=== PATIENT | female | born 1990 | race Caucasian/White ===

== ENCOUNTER 2020-03-01 14:33 | Outpatient (REF) | payer OTHER, SELFPAY ==
[2020-03-02 11:08] LABS: BV Int Neg Control Negative (Negative); BV Int Pos Control Positive (Positive)
[2020-03-26 13:22] LABS: CT PCR NOT DETECTED (Not Detect.); NG PCR NOT DETECTED (Not Detect.)
== END 2020-03-01 14:34 | disposition home or self-care (01) ==
LOC: HO.LAB 14:33
PROVIDERS: PCP Internal Medicine; Visit Provider Advanced Practice Midwife
DX: N89.8 Other specified noninflammatory disorders of vagina (principal); N94.9 Unspecified condition associated with female genital organs and menstrual cycle; Z11.8 Encounter for screening for other infectious and parasitic diseases; Z11.3 Encounter for screening for infections with a predominantly sexual mode of transmission
CPT/HCPCS: 87480; 87491; 87510; 87591; 87660; 99212

== ENCOUNTER → 2020-04-06 08:49 | Outpatient (BNVA) | payer OTHER, SELFPAY | PROVIDERS: PCP Internal Medicine; Visit Provider Advanced Practice Midwife | DX: Z30.42 Encounter for surveillance of injectable contraceptive (principal) | CPT/HCPCS: 96372; 99211; J1050 ==

== ENCOUNTER 2020-04-07 13:07 | Outpatient (REF) | payer OTHER, SELFPAY ==
[2020-04-08 09:40] LABS: BV Int Neg Control Negative (Negative); BV Int Pos Control Positive (Positive)
== END 2020-04-07 13:08 | disposition home or self-care (01) ==
LOC: HO.LAB 13:07
PROVIDERS: PCP Internal Medicine; Visit Provider Advanced Practice Midwife
DX: B96.89 Other specified bacterial agents as the cause of diseases classified elsewhere (principal); N76.0 Acute vaginitis; Z86.19 Personal history of other infectious and parasitic diseases
CPT/HCPCS: 87210; 87480; 87510; 87660; 99212

== ENCOUNTER → 2020-06-29 08:43 | Outpatient (BNVA) | payer OTHER, SELFPAY | PROVIDERS: PCP Internal Medicine; Visit Provider Advanced Practice Midwife | DX: Z30.42 Encounter for surveillance of injectable contraceptive (principal) | CPT/HCPCS: 96372; 99211; J1050 ==

== ENCOUNTER 2020-08-09 13:06 | Outpatient (REF) | payer OTHER, SELFPAY ==
[2020-08-10 09:48] LABS: CT PCR NOT DETECTED (Not Detect.); NG PCR NOT DETECTED (Not Detect.)
== END 2020-08-09 13:07 | disposition home or self-care (01) ==
LOC: HO.LAB 13:06
PROVIDERS: PCP Internal Medicine; Visit Provider Advanced Practice Midwife
DX: Z01.419 Encounter for gynecological examination (general) (routine) without abnormal findings (principal); Z11.3 Encounter for screening for infections with a predominantly sexual mode of transmission; Z20.2 Contact with and (suspected) exposure to infections with a predominantly sexual mode of transmission
CPT/HCPCS: 87491; 87591

== ENCOUNTER 2020-09-14 08:48 | Outpatient (REF) | payer OTHER, SELFPAY ==
[2020-09-14 10:38] LABS: Syphilis Screen Nonreactive (Nonreactive)
[2020-09-14 10:43] LABS: HBc Num1 0.08 S/CO (0.00-0.79); Hepatitis B Core Antibody Nonreactive (Nonreactive)
[2020-09-14 11:19] LABS: ~HepC Num1 0.09 S/CO (0.00-0.79); ~Hepatitis C Antibody Nonreactive (Nonreactive)
[2020-09-15 11:49] LABS: HIV AB/AG Nonreactive (Nonreactive); HIV Num 1 0.06 S/CO (0.00-0.99)
== END 2020-09-14 08:49 | disposition home or self-care (01) ==
LOC: HO.LAB 08:48
PROVIDERS: PCP Internal Medicine; Visit Provider Advanced Practice Midwife
DX: Z30.42 Encounter for surveillance of injectable contraceptive (principal); Z20.2 Contact with and (suspected) exposure to infections with a predominantly sexual mode of transmission
CPT/HCPCS: 36415; 86704; 86780; 86803; 87389; 96372; 99211

== ENCOUNTER 2021-01-21 13:38 | Emergency (ER) | payer OTHER, SELFPAY ==
[2021-01-21 13:42] VITALS: BP 151/64; PULSE 90; RESP 14; TEMP 36.8; O2SAT 99; BMI 33.7
--- NOTE | 2021-01-21 13:53 | ED.ALLEREA ---
HPI - Allergic Reaction General Chief complaint: Allergic Reaction Stated complaint: allergic reaction Time Seen by Provider: 01/21/21 13:44 Source: patient Mode of arrival: ambulatory Limitations: no limitations History of Present Illness HPI narrative: Patient comes emergency room complaining of an allergic reaction that started 20 minutes prior to arrival, patient states she has hives throughout her body, itchiness, no difficulty breathing, no oral mucosa swelling. Patient states that approximately 3 hours ago she ate red snapper. Patient denies any numbness or tingling, no nausea vomiting or diarrhea. Related Data Home Medications Medication Instructions Recorded Confirmed medroxyprogesterone 150 mg/mL mg IM 03/01/20 intramuscular suspension sulfamethoxazole 800 1 tab PO BID 03/01/20 mg-trimethoprim 160 mg tablet fluoxetine 20 mg capsule 20 mg PO DAILY 08/09/20 Previous Rx's Medication Instructions Recorded metronidazole 500 mg tablet 500 mg PO BID 7 Days #14 tab 03/02/20 (Flagyl) medroxyprogesterone 150 mg/mL 150 mg IM Q12W #1 ml 08/09/20 intramuscular suspension Allergies Allergy/AdvReac Type Severity Reaction Status Date / Time metronidazole [From Flagyl] Allergy Intermediate Hives Verified 01/21/21 13:42 amoxicillin [AMOXICILLIN] Allergy Unknown UNKNOWN Verified 01/21/21 13:42 [facility] Past Medical History [facility] Narrative: C Family History Family History Paternal Grandmother Breast cancer Social History Social History Alcohol intake: current Alcohol intake frequency: holidays/special occasions only Advance Directives: No Sexual orientation: Straight/Heterosexual Gender identity: Female Physical Exam Vital Signs: Vital Signs: Last Vital Signs Temp 98.3 F 01/21/21 13:42 Pulse 85 01/21/21 14:47 Resp 19 01/21/21 14:47 BP 107/58 L 01/21/21 14:47 Pulse Ox 99 01/21/21 14:47 Body Mass Index 33.7 Const: Other: Appearance: Alert. Oriented X3. No acute distress. Eyes: Pupils equal, round and reactive to light. ENT: Pharynx normal. No angioedema Neck: Normal inspection. Neck supple. No lymph nodes noted. No crepitus CVS: Normal heart rate and rhythm. Pulses normal. Normal S1 and S2 Respiratory: No respiratory distress. Breath sounds normal. No Wheezing. No rales Abdomen: Soft and nontender. No rigidity. No distention. good BS x4 Skin: 5 in face, neck, chest abdomen, upper and lower extremities Extremities: No lower extremity edema. No Lacerations. No Rash Neuro: Oriented X 3. No motor deficit. No sensory deficit. Moving all extermities. No slurred speech. Course Course Course Narrative: Patient feeling much better, patient received 1 dose of Benadryl IV, Pepcid, Solu-Medrol. Patient's physical exam normal. Patient likely had scombroid rather than an allergic reaction. I discussed with the patient not to eat any seafood until she gets tested for allergies. Discharge Plan Discharge Clinical Impression: Allergic reaction to food Qualifiers: Encounter type: initial encounter Qualified Code(s): T78.1XXA - Other adverse food reactions, not elsewhere classified, initial encounter Patient Disposition: Home, Self-Care Instructions: Food Allergy (ED) Additional Instructions: Please follow-up with your primary care physician tomorrow. If you have any worsening or new symptoms, please return to the emergency room or call 911 Prescriptions: No Action metronidazole [Flagyl] 500 mg tablet 500 mg PO BID 7 Days Qty: 14 RF: 0 medroxyprogesterone 150 mg/mL suspension IM RF: 0 sulfamethoxazole-trimethoprim 800-160 mg tablet 1 tab PO BID RF: 0 medroxyprogesterone [Depo-Provera] 150 mg/mL syringe 150 mg IM ONCE Qty: 1 RF: 0 fluoxetine 20 mg capsule 20 mg PO DAILY RF: 0 medroxyprogesterone 150 mg/mL suspension 150 mg IM Q12W Qty: 1 RF: 3
[2021-01-21] MEDS: diphenhydrAMINE HCL 50 MG/ML VIAL IVPUSH (13:55)
[2021-01-21] MEDS: Famotidine/PF 20 MG/2 ML VIAL IVPUSH (13:58)
[2021-01-21] MEDS: methylPREDNISolone Sod Succ 125 MG/2 ML VIAL IVPUSH (14:00)
--- NOTE | 2021-01-21 14:01 | PC.NURSE ---
Pt medicated for allergic reaction. VSS at this time. Airway is open with breathing pattern even and unlabored.
[2021-01-21 14:02] VITALS: BP 122/62; PULSE 86; RESP 16; O2SAT 99
[2021-01-21 14:47] VITALS: BP 107/58; PULSE 85; RESP 19; O2SAT 99
--- NOTE | 2021-01-21 14:47 | PC.NURSE ---
pt resting quietly. hives gone
== END 2021-01-21 15:23 | disposition home or self-care (01) ==
PROVIDERS: Emergency Provider Emergency Medicine; PCP Internal Medicine
DX: L50.9 Urticaria, unspecified (principal); Z79.899 Other long term (current) drug therapy
CPT/HCPCS: 96374; 96375; 99284; J1200; J2930

== ENCOUNTER 2021-08-29 08:31 | Emergency (ER) | payer OTHER, SELFPAY ==
--- NOTE | ~2021-08-29 | US_ITS ---
EXAMINATION: US OBSTETRICAL ULTRASOUND CLINICAL INFORMATION: 6 weeks with bleeding COMPARISON: None. LMP: 07/29/2021. TECHNIQUE: Transabdominal and endovaginal scanning was performed. FINDINGS: A tiny gestational sac may be present within the uterus but no pole is seen. No yolk sac or heart rate is detected. MATERNAL ADNEXA: The right maternal ovary measures 3.0 x 1.6 x 2.2 cm. The left maternal ovary measures 2.7 x 1.6 x 2.4 cm. There is no significant maternal adnexal mass. A tiny amount of free intraperitoneal fluid is present. US/US OB pelvic and transvaginal IMPRESSION: A tiny gestational sac may be present but no pole is identified. Please correlate with hCG levels and repeat ultrasound if necessary.
[2021-08-29 09:18] VITALS: BP 98/66; PULSE 90; RESP 16; TEMP 36.4; O2SAT 95; BMI 33.8
[2021-08-29 09:25] LABS: MANUAL DIFF FLAG NO
[2021-08-29 09:31] LABS: Basophils Percent Auto 0.4 % (0-2); Eosinophils Absolute Auto 0.1 X10*3/uL (0.0-0.4); Eosinophils Percent Auto 1.3 % (0-4); Hematocrit 40.3 % (37.0-47.0); Hemoglobin 13.4 g/dl (12.0-16.0); Imm Gran Abs Auto 0.02 X10*3/uL (0.00-0.03); Imm Gran Pct Auto 0.3 % (0.0-0.4); Lymphocytes Absolute Auto 2.2 X10*3/uL (1.2-4.9); Lymphocytes Percent Auto 32.5 % (20-40); Mean Corpuscular HGB Conc 33.3 g/dl (31.0-35.0); Mean Corpuscular Hemoglobin 31.7 pg (27.0-33.0); Mean Corpuscular Volume 95.3 fL (80.0-98.0); Mean Platelet Volume 9.4 fL (9.4-12.3); Monocytes Absolute Auto 0.6 X10*3/uL (0.1-1.2); Monocytes Percent Auto 8.6 % (2-11); Neutrophils Absolute Auto 3.8 x10*3/uL (2.0-8.3); Neutrophils Percent Auto 56.9 % (45-73); Platelet Count 220 X10*3/uL (160-400); Red Blood Count 4.23 X10*6/uL (4.20-5.50); White Blood Count 6.7 X10*3/uL (4.8-10.8)
[2021-08-29 09:32] LABS: INTERNATIONAL NORM RATIO 1.1 (0.9-1.1)
--- NOTE | 2021-08-29 09:46 | ED_ITS ---
HPI - General Chief complaint: General Medical Stated complaint: /Vaginal bleeding Time Seen by Provider: 08/29/21 08:42 Source: patient Mode of arrival: ambulatory Limitations: no limitations History of Present Illness HPI Narrative: states she is 6 weeks reportedly by dates LMP 07/29/21 here with c/o low pelvic pain and vaginal bleeding started last night with clots - did have intercourse last night MD Complaint: abdominal pain and vaginal bleeding Onset (ago): day(s) (1) Location: pelvis Severity: mild Quality: Cramping Radiation: pelvis Relieving factors: none Exacerbating factors: none Associated symptoms: vaginal bleeding Vaginal discharge: none Vaginal bleeding: light and clots Patient : Yes OB History - Previous Pregnancies: no complications care: none Related Data Home Medications Medication Instructions Recorded Confirmed medroxyprogesterone 150 mg/mL mg IM 03/01/20 intramuscular suspension sulfamethoxazole 800 1 tab PO BID 03/01/20 mg-trimethoprim 160 mg tablet fluoxetine 20 mg capsule 20 mg PO DAILY 08/09/20 Previous Rx's Medication Instructions Recorded metronidazole 500 mg tablet 500 mg PO BID 7 days #14 tabs 03/02/20 (Flagyl) medroxyprogesterone 150 mg/mL 150 mg IM Q12W #1 mL 08/09/20 intramuscular suspension Allergies Allergy/AdvReac Type Severity Reaction Status Date / Time metronidazole [From Flagyl] Allergy Intermediate Hives Verified 01/21/21 13:42 amoxicillin [AMOXICILLIN] Allergy Unknown UNKNOWN Verified 01/21/21 13:42 Review of Systems Review of Systems: Constitutional : No Fever, No Chills ENT/Mouth : No sore throat, No Rhinorrhea Eyes: No Eye Pain, No Redness Cardiovascular : No Chest Pain, No SOB Respiratory : No Cough, No Sputum, No Wheezing Gastrointestinal : no Nausea, No Vomiting, No Diarrhea, positive abdominal pain, Genitourinary : positive irregular bleeding, No Dysuria, No Urinary Frequency, positive pelvic pain Musculoskeletal : No Myalgias Skin : No rash Neuro : No Weakness, No Headache Psych : No Anxiety/Panic, No Depression Heme/Lymph: No bruising, No Lymphadenopathy Endocrine : No Polyuria, No Polydipsia All other systems reviewed and are negative [facility] Past Medical History Attestation statement: The following information was validated with the patient. Medical History No pertinent past medical history Family History Family History Paternal Grandmother Breast cancer Social History Social History Alcohol intake: current Alcohol intake frequency: holidays/special occasions only Patient Tobacco Use Status: Never used Tobacco Smoked in Last 30 Days: No Use of substances other than those prescribed or required for medical reasons: No Advance Directives: No Advance Directives Information Provided: No Patient : Yes Sexual orientation: Straight/Heterosexual Gender identity: Female Physical Exam Vital Signs: Vital Signs: Last Vital Signs Temp 97.6 F 08/29/21 09:18 Pulse 90 08/29/21 09:18 Resp 16 08/29/21 09:18 BP 98/66 08/29/21 09:18 Pulse Ox 95 08/29/21 09:18 O2 Del Method 08/29/21 09:18 BMI result Body Mass Index 33.8 Appearance: Alert. Oriented X3. No acute distress. Eyes: Pupils equal, round and reactive to light. ENT: Pharynx normal. Neck: Normal inspection. Neck supple. CVS: Normal heart rate and rhythm. Pulses normal. Respiratory: No respiratory distress. Breath sounds normal. Abdomen: Soft and nontender. no peritoneal signs Skin: Skin warm and dry. Normal skin color. Normal skin turgor. Extremities: No lower extremity edema. No calf ttp Neuro: Oriented X 3. No motor deficit. No sensory deficit. Course Course Course Narrative: quant negative US negative likely her period since last LMP was 07/29 MDM - OB/Uterine Contractions MDM Narrative Medical decision making narrative: 31 yo female with no sig PMH here with c/o pelvic pain and vaginal bleeding states she is 6 weeks D = LMP at this time will need labs, RH status, US - she has no peritoneal signs at this time Lab Data Result diagrams: 08/29/21 09:20 08/29/21 09:20 Labs: Lab Results 08/29/21 08/29/21 08/29/21 Range/Units 09:20 09:20 09:20 WBC 6.7 (4.8-10.8) X10*3/uL RBC 4.23 (4.20-5.50) X10*6/uL Hgb 13.4 (12.0-16.0) g/dl Hct 40.3 (37.0-47.0) % MCV 95.3 (80.0-98.0) fL MCH 31.7 (27.0-33.0) pg MCHC 33.3 (31.0-35.0) g/dl RDW 13.0 (11.0-16.0) % Plt Count 220 (160-400) X10*3/uL MPV 9.4 (9.4-12.3) fL Immature Gran % (Auto) 0.3 (0.0-0.4) % Neut % (Auto) 56.9 (45-73) % Lymph % (Auto) 32.5 (20-40) % [place] % (Auto) 8.6 (2-11) % Eos % (Auto) 1.3 (0-4) % Baso % (Auto) 0.4 (0-2) % Lymph # (Auto) 2.2 (1.2-4.9) X10*3/uL [place] # (Auto) 0.6 (0.1-1.2) X10*3/uL Eos # (Auto) 0.1 (0.0-0.4) X10*3/uL Baso # (Auto) 0.0 (0.0-0.2) X10*3/uL Abs Immat Gran (auto) 0.02 (0.00-0.03) X10*3/uL Absolute Neuts (auto) 3.8 (2.0-8.3) x10*3/uL Absolute Nucleated RBC 0.000 (0.0-0.012) X10*3/uL Nucleated RBC % (auto) 0.0 (0.0-0.2) /100WBC PT 12.0 (9.9-13.0) SEC INR 1.1 (0.9-1.1) Sodium 137 (135-145) mmol/L Potassium 4.0 (3.3-5.1) mmol/L Chloride 109 H (96-108) mmol/L Carbon Dioxide 21 L (22-29) mmol/L Anion Gap 11 L (12-20) BUN 13 (9-16) mg/dL Creatinine 1.03 (0.5-1.4) mg/dL Estim Creat Clear Calc 102.9 Estimated GFR > 60 Random Glucose 106 (60-115) mg/dL Calcium 8.9 (8.4-10.2) mg/dL Total Bilirubin 0.3 (0.0-1.0) mg/dL Direct Bilirubin 0.2 (0.0-0.5) mg/dL AST 16 (5-31) U/L ALT 13 (0-31) U/L Alkaline Phosphatase 44 (39-117) U/L Total Protein 6.5 (6.5-8.0) g/dL Albumin 3.9 (3.5-5.0) g/dL Beta HCG, Quant < 2 mIU/mL Urine Color Urine Appearance Urine pH (5.0-8.0) Ur Specific [place] (1.005-1.025) Urine Protein (NEG-TRACE) MG/DL Urine Glucose (UA) (NEG) MG/DL Urine Ketones (NEG) MG/DL Urine Blood (NEG) Urine Nitrite (NEG) Ur Leukocyte Esterase (NEG) Urine RBC (0) /HPF Urine WBC (0-4) /HPF Ur Squamous Epith Cells /LPF Amorphous Sediment /LPF Urine Bacteria /LPF Urine Mucus /LPF COVID-19 ([facility]) (Negative) COVID-19 Clin Com Blood Type 08/29/21 08/29/21 08/29/21 Range/Units 09:20 09:20 09:20 WBC (4.8-10.8) X10*3/uL RBC (4.20-5.50) X10*6/uL Hgb (12.0-16.0) g/dl Hct (37.0-47.0) % MCV (80.0-98.0) fL MCH (27.0-33.0) pg MCHC (31.0-35.0) g/dl RDW (11.0-16.0) % Plt Count (160-400) X10*3/uL MPV (9.4-12.3) fL Immature Gran % (Auto) (0.0-0.4) % Neut % (Auto) (45-73) % Lymph % (Auto) (20-40) % [place] % (Auto) (2-11) % Eos % (Auto) (0-4) % Baso % (Auto) (0-2) % Lymph # (Auto) (1.2-4.9) X10*3/uL [place] # (Auto) (0.1-1.2) X10*3/uL Eos # (Auto) (0.0-0.4) X10*3/uL Baso # (Auto) (0.0-0.2) X10*3/uL Abs Immat Gran (auto) (0.00-0.03) X10*3/uL Absolute Neuts (auto) (2.0-8.3) x10*3/uL Absolute Nucleated RBC (0.0-0.012) X10*3/uL Nucleated RBC % (auto) (0.0-0.2) /100WBC PT (9.9-13.0) SEC INR (0.9-1.1) Sodium (135-145) mmol/L Potassium (3.3-5.1) mmol/L Chloride (96-108) mmol/L Carbon Dioxide (22-29) mmol/L Anion Gap (12-20) BUN (9-16) mg/dL Creatinine (0.5-1.4) mg/dL Estim Creat Clear Calc Estimated GFR Random Glucose (60-115) mg/dL Calcium (8.4-10.2) mg/dL Total Bilirubin (0.0-1.0) mg/dL Direct Bilirubin (0.0-0.5) mg/dL AST (5-31) U/L ALT (0-31) U/L Alkaline Phosphatase (39-117) U/L Total Protein (6.5-8.0) g/dL Albumin (3.5-5.0) g/dL Beta HCG, Quant mIU/mL Urine Color YELLOW Urine Appearance HAZY Urine pH 8.0 (5.0-8.0) Ur Specific [place] 1.015 (1.005-1.025) Urine Protein NEG (NEG-TRACE) MG/DL Urine Glucose (UA) NEG (NEG) MG/DL Urine Ketones NEG (NEG) MG/DL Urine Blood 1+ H (NEG) Urine Nitrite NEG (NEG) Ur Leukocyte Esterase NEG (NEG) Urine RBC 0-2 (0) /HPF Urine WBC 0 (0-4) /HPF Ur Squamous Epith Cells 1+ /LPF Amorphous Sediment 1+ /LPF Urine Bacteria NONE /LPF Urine Mucus 2+ /LPF COVID-19 ([facility]) Negative (Negative) COVID-19 Clin Com See Note Blood Type A Positive Discharge Plan Discharge Clinical Impression: Vaginal bleeding Patient Disposition: Home, Self-Care Instructions: Dysmenorrhea (ED) Additional Instructions: return to ED for any worsening symptoms or concerns hormone level negative US negative for A POS blood type Prescriptions: No Action metronidazole [Flagyl] 500 mg tablet 500 mg PO BID 7 Days Qty: 14 0RF Rx Instructions: Avoid Alcohol or vinegar based products while taking medroxyprogesterone 150 mg/mL suspension IM sulfamethoxazole-trimethoprim 800-160 mg tablet 1 tab PO BID medroxyprogesterone [Depo-Provera] 150 mg/mL syringe 150 mg IM ONCE Qty: 1 0RF fluoxetine 20 mg capsule 20 mg PO DAILY medroxyprogesterone 150 mg/mL suspension 150 mg IM Q12W Qty: 1 3RF Stand Alone Forms: Work/School Release
[2021-08-29 09:53] LABS: Alanine Aminotransferase 13 U/L (0-31); Albumin Level 3.9 g/dL (3.5-5.0); Alkaline Phosphatase 44 U/L (39-117); Anion Gap 11 (12-20); Aspartate Amino Transferase 16 U/L (5-31); Bilirubin Direct 0.2 mg/dL (0.0-0.5); Bilirubin Total 0.3 mg/dL (0.0-1.0); Blood Urea Nitrogen 13 mg/dL (9-16); Calcium 8.9 mg/dL (8.4-10.2); Carbon Dioxide 21 mmol/L (22-29); Chloride 109 mmol/L (96-108); Creatinine Clr Calc Pharmacy 102.9; Estimated Glomerular Filt Rate > 60; Glucose Random 106 mg/dL (60-115); Sodium 137 mmol/L (135-145); Total Protein 6.5 g/dL (6.5-8.0)
[2021-08-29 10:01] LABS: HCG Quantitative < 2 mIU/mL
[2021-08-29 11:03] LABS: COVID-19 Test Negative (Negative); IDNOW Serial# 55D5AD1C
[2021-08-29 11:23] LABS: Appearance Urine HAZY; Color Urine YELLOW; Glucose Urine UA NEG (NEG); Leukocyte Esterase Urine NEG (NEG); Nitrite Urine NEG (NEG); Specific Gravity - Urine 1.015 (1.005-1.025); UACC Culture Trigger NO; Urine Blood 1+ (NEG); Urine Ketones NEG (NEG); Urine Protein NEG (NEG-TRACE)
[2021-08-29 11:30] LABS: Amorphous Sediment Urine 1+ /LPF; RBC Urine 0-2 /HPF (0); Squamous Epithelial Cell Urine 1+ /LPF; WBC Urine 0 /HPF (0-4)
[2021-08-29 11:31] LABS: Mucus Urine 2+ /LPF
== END 2021-08-29 12:54 | disposition home or self-care (01) ==
PROVIDERS: Emergency Provider Emergency Medicine; PCP Internal Medicine
DX: N93.9 Abnormal uterine and vaginal bleeding, unspecified (principal); Z20.822 Contact with and (suspected) exposure to COVID-19; R10.2 Pelvic and perineal pain
CPT/HCPCS: 76801; 76817; 80048; 80076; 81001; 84702; 85025; 85610; 86900; 86901; 87635; 96360; 99283; 99284

== ENCOUNTER 2021-09-05 10:31 | Outpatient (REF) | payer OTHER, SELFPAY ==
[2021-09-05 13:04] LABS: HBc Num1 0.06 S/CO (0.00-0.79); HIV AB/AG Nonreactive (Nonreactive); HIV Num 1 0.08 S/CO (0.00-0.99); Hepatitis B Core Antibody Nonreactive (Nonreactive)
[2021-09-05 13:40] LABS: ~HepC Num1 0.06 S/CO (0.00-0.79); ~Hepatitis C Antibody Nonreactive (Nonreactive)
[2021-09-05 18:48] LABS: CT PCR NOT DETECTED (Not Detect.); NG PCR NOT DETECTED (Not Detect.)
[2021-09-06 06:03] LABS: Syphilis Screen Nonreactive (Nonreactive)
[2021-09-06 09:14] LABS: BV Int Neg Control Negative (Negative); BV Int Pos Control Positive (Positive)
== END 2021-09-05 10:32 | disposition home or self-care (01) ==
LOC: HO.LAB 10:31
PROVIDERS: Visit Provider Advanced Practice Midwife
DX: Z01.84 Encounter for antibody response examination (principal); Z11.3 Encounter for screening for infections with a predominantly sexual mode of transmission; Z11.4 Encounter for screening for human immunodeficiency virus [HIV]; Z20.2 Contact with and (suspected) exposure to infections with a predominantly sexual mode of transmission
CPT/HCPCS: 36415; 86704; 86780; 86803; 87389; 87480; 87491; 87510; 87591; 87660

== ENCOUNTER 2021-11-03 09:31 | Outpatient (REF) | payer OTHER, SELFPAY ==
[2021-11-03 14:56] LABS: CT PCR NOT DETECTED (Not Detect.); NG PCR NOT DETECTED (Not Detect.)
[2021-11-04 09:44] LABS: BV Int Neg Control Negative (Negative); BV Int Pos Control Positive (Positive)
== END 2021-11-03 09:32 | disposition home or self-care (01) ==
LOC: HO.LAB 09:31
PROVIDERS: Visit Provider Advanced Practice Midwife
DX: Z11.3 Encounter for screening for infections with a predominantly sexual mode of transmission (principal); Z20.2 Contact with and (suspected) exposure to infections with a predominantly sexual mode of transmission
CPT/HCPCS: 87480; 87491; 87510; 87591; 87660; 99212

== ENCOUNTER 2022-09-07 09:45 | Outpatient (REF) | payer OTHER, SELFPAY ==
[2022-09-13 02:08] LABS: HPV mRNA E6/E7 rflx Not Detected (Not Detected)
== END 2022-09-07 09:46 | disposition home or self-care (01) ==
LOC: HO.LNP 09:45
PROVIDERS: PCP Internal Medicine; Visit Provider Advanced Practice Midwife
DX: Z01.419 Encounter for gynecological examination (general) (routine) without abnormal findings (principal); Z11.51 Encounter for screening for human papillomavirus (HPV); Z20.2 Contact with and (suspected) exposure to infections with a predominantly sexual mode of transmission
CPT/HCPCS: 87624; 88142

== ENCOUNTER 2022-09-07 10:35 | Outpatient (REF) | payer OTHER, SELFPAY ==
[2022-09-07 12:29] LABS: HBc Num1 0.07 S/CO (0.00-0.79); HIV AB/AG Nonreactive (Nonreactive); HIV Num 1 0.07 S/CO (0.00-0.99); Hepatitis B Core Antibody Nonreactive (Nonreactive); ~HepC Num1 0.05 S/CO (0.00-0.79); ~Hepatitis C Antibody Nonreactive (Nonreactive)
[2022-09-07 12:30] LABS: Syphilis Screen Nonreactive (Nonreactive)
[2022-09-07 15:06] LABS: CT PCR NOT DETECTED (Not Detect.); NG PCR NOT DETECTED (Not Detect.)
== END 2022-09-07 10:36 | disposition home or self-care (01) ==
LOC: HO.LAB 10:35
PROVIDERS: PCP Internal Medicine; Visit Provider Advanced Practice Midwife
DX: Z11.4 Encounter for screening for human immunodeficiency virus [HIV] (principal); Z20.2 Contact with and (suspected) exposure to infections with a predominantly sexual mode of transmission
CPT/HCPCS: 0353U; 86704; 86780; 86803; 87389

== ENCOUNTER 2023-01-25 08:01 | Outpatient (AMB) | payer OTHER, SELFPAY ==
--- NOTE | 2023-01-25 08:04 | MHC.OFFVIS ---
Intake Vital Signs 01/25/23 08:07 Height 5 ft 10 in Weight 248 lb BMI 35.6 BP 112/56 L Intake Visit Reasons: Breast lump Intake Note: took a HCG test at home and is positive The patient agreed to use of a medical dosimetrist during this encounter. Scribed for ADRIEL Kemp by Jennifer Norman medical dosimetrist, on 01/25/2023 at 8:15 am EST Professional Application Designer Required: No Information Interpreted: non-clinical & clinical Supervisor [employer]: Supervisor [employer] Present (Aidyn) Allergies metronidazole [From Flagyl] Allergy (Intermediate, Verified 01/25/23 08:10) Hives amoxicillin [AMOXICILLIN] Allergy (Unknown, Verified 01/25/23 08:10) UNKNOWN Is last menstrual period known: Yes Last menstrual period: 12/21/22 Post menopausal: No HPI HPI Comments History of Present Illness Details She presents with complaints of breast tenderness. She also presents for missed menses. LMP 12/21/22.? Her menses are typically regular and monthly. Took home HCG test, positive. She is happy about the . Taking PNV. Reports fatigue and nausea. Denies bleeding. Hx of miscarriage at 16wks. She would like US due to her hx. Her sister works at [employer] and she is interested in care there. [facility] Medical History Miscarriage at 8 to 28 weeks gestation No pertinent past medical history Surgical History H/O dilation and curettage Family History Paternal Grandmother Breast cancer Dementia Alzheimer's disease Mother Diabetes Social History Household Members Other:: daughter Housing: Apartment Alcohol intake: current Alcohol intake frequency: holidays/special occasions only Patient Tobacco Use Status: Never used Tobacco Current occupation: Heavy Equipment Supervisor Sexual orientation: Straight/Heterosexual Gender identity: Female Female Reproductive History Menstrual Age of Menarche: 9 Date of last menstrual period: 12/21/22 control method: none Total pregnancies: 6 Full term: 1 Number of Living Children: 1 Ab induced: 2 Ab spontaneous: 2 Date of last pap smear: 09/10/22 (negative) History of abnormal pap smear: Yes (2019 [facility]) Review of Systems Const All systems reviewed & are unremarkable except as noted in HPI and below Reports abnormal menses Skin/Breast Reports breast pain Physical Exam Vital Signs: Last Vital Signs BP 112/56 L 01/25/23 08:07 BMI result Body Mass Index 35.6 Const General: cooperative, no acute distress and well developed Chest Breast/axilla inspection: normal inspection of the breasts (symmetrical) and Other (no: puckering, dimpling, peau de orange, retraction, discharge or lesions) Breast/axilla palpation: normal palpation of the breasts (large) and other (no masses palpable bilaterally) Results AMB Test Urine AMB Test Urine Positive Last Edit by BRANDON Mata on 01/25/23 08:19 Results Reviewed Results Reviewed: Laboratory Last Values Tst Clinic Positive 01/25/23 08:18 Assessment & Plan Assessment & Plan (1) Miscarriage at 8 to 28 weeks gestation: Code(s): O03.9 - Complete or unspecified spontaneous without complication Plan: Urine HCG today, positive. Discussed EDC pending OB US. [place] ordered today [place] [facility] Offered [facility], does not want due to working nights. Start Vitamin B6. Continue PNV. Reviewed ectopic warnings and when to call for further evaluation. Send records [place] [facility] [place]. Next appointment TBD. (2) Missed menses: Code(s): N92.6 - Irregular menstruation, unspecified Orders: Orders AMB HCG Urine Test Today Z32.01 - Encounter for test, result positive US OB limited 02/06/23 N92.6 - Irregular menstruation, unspecified, O03.9 - Complete or unspecified spontaneous without complication Medications: New pyridoxine (vitamin B6) 25 mg PO TID 90 tabs 0RF PNV,calcium 32-wroi-hqxhp acid 27 mg iron- 1 mg ( Vitamins Plus Low Iron) 1 tab PO DAILY 90 tabs 4RF Coding Level of Care Code Est Pt Level 3 (60704) Diagnoses Miscarriage at 8 to 28 weeks gestation O03.9 Missed menses N92.6
[2023-01-25 08:07] VITALS: BP 112/56; BMI 35.6
== END 2023-01-25 08:31 | disposition home or self-care (01) ==
PROVIDERS: PCP Internal Medicine; Visit Provider Advanced Practice Midwife
DX: O03.9 Complete or unspecified spontaneous abortion without complication (principal); N92.6 Irregular menstruation, unspecified; Z32.01 Encounter for pregnancy test, result positive
CPT/HCPCS: 99213

== ENCOUNTER → 2023-01-25 08:01 | Outpatient (BNVA) | payer OTHER, SELFPAY | PROVIDERS: PCP Internal Medicine; Visit Provider Advanced Practice Midwife | DX: O03.9 Complete or unspecified spontaneous abortion without complication (principal); N92.6 Irregular menstruation, unspecified | CPT/HCPCS: 81025; 99212 ==

== ENCOUNTER 2023-02-06 08:56 | Outpatient (REF) | payer OTHER, SELFPAY ==
--- NOTE | ~2023-02-06 | US_ITS ---
EXAMINATION: US OBSTETRICAL ULTRASOUND CLINICAL INFORMATION: Irregular menstruation COMPARISON: Pelvic ultrasound 08/29/2021 LMP: 12/21/2022. Gestational age by maternal dates is 6 weeks and 5 days. Estimated date of delivery by maternal dates is 09/27/2023. TECHNIQUE: Ultrasound of the maternal pelvis is performed using transabdominal and transvaginal transducers. Transvaginal imaging is performed due to inadequate visualization transabdominally. M-mode Doppler is also performed. FINDINGS: There is a single intrauterine gestational sac with visible yolk sac, embryo/fetus, and cardiac activity. There is no significant subchorionic hemorrhage or hematoma. The uterus is retroverted and retroflexed in position. HR: 130 beats per minute. CRL (crown rump length): 0.8 cm (6 weeks and 6 days +/- 4 days). PEDRO (estimated date of delivery): 09/26/2023 +/- 4 days. MATERNAL ADNEXA: The right maternal ovary measures 2.3 x 2.3 x 2.1 cm. The left maternal ovary measures 3.1 x 2.2 x 2.1 cm. Incidentally noted physiologic 2 cm corpus luteum is noted. There is no significant maternal adnexal mass. No maternal pelvic ascites. US/US OB <= 14 weeks fetus IMPRESSION: 1. Single intrauterine gestation with ultrasound gestational age of 6 weeks and 6 +/- 4 days. 2. Estimated date of delivery is 09/26/2023 +/- 4 days. 3. No maternal adnexal mass or pelvic ascites. 4. Uterus is retroverted and retroflexed in position.
== END 2023-02-06 08:57 | disposition home or self-care (01) ==
LOC: HO.US 08:56
PROVIDERS: PCP Internal Medicine; Visit Provider Advanced Practice Midwife
DX: O03.9 Complete or unspecified spontaneous abortion without complication (principal)
CPT/HCPCS: 76801

== ENCOUNTER 2023-02-22 10:20 | Outpatient (REF) | payer OTHER, SELFPAY ==
[2023-02-22 17:00] LABS: CT PCR NOT DETECTED (Not Detect.); NG PCR NOT DETECTED (Not Detect.)
[2023-02-23 11:57] LABS: BV Int Neg Control Negative (Negative); BV Int Pos Control Positive (Positive)
== END 2023-02-22 10:21 | disposition home or self-care (01) ==
LOC: HO.LNP 10:20
PROVIDERS: PCP Internal Medicine; Visit Provider Advanced Practice Midwife
DX: R35.0 Frequency of micturition (principal); N89.8 Other specified noninflammatory disorders of vagina; Z20.2 Contact with and (suspected) exposure to infections with a predominantly sexual mode of transmission
CPT/HCPCS: 0353U; 81002; 87480; 87510; 87660; 99212

== ENCOUNTER 2023-02-22 10:20 | Outpatient (AMB) | payer OTHER, SELFPAY ==
[2023-02-22 10:21] VITALS: BP 110/60; BMI 35.4
--- NOTE | 2023-02-22 10:21 | A.OFFVIS_ITS ---
Intake Vital Signs 02/22/23 10:21 Height 5 ft 10 in Weight 246 lb 14.684 oz BMI 35.4 BP 110/60 Intake Visit Reasons: vag irritation Driver/Guide Required: No Information Interpreted: non-clinical & clinical Pet Nutrition Specialist: Pet Nutrition Specialist Present (Pooja TAYLOR) Accompanied by: Self / Same As Patient Allergies metronidazole [From Flagyl] Allergy (Intermediate, Verified 02/22/23 10:27) Hives amoxicillin [AMOXICILLIN] Allergy (Unknown, Verified 02/22/23 10:27) UNKNOWN Patient : Yes HPI HPI Comments History of Present Illness Details Edel presents with vaginal discharge and irritation, frequency of urination. She is approximately 9 weeks, has an appointment at the [facility] for care her OB physical is in 2 week. She denies any bleeding or pelvic pain. [facility] Medical History (Updated 02/22/23 @ 12:25 by Hien Ledesma CNM) No pertinent past medical history Surgical History H/O dilation and curettage Family History Paternal Grandmother Breast cancer Dementia Alzheimer's disease Mother Diabetes Social History Household Members Other:: daughter Housing: Apartment Alcohol intake: current Alcohol intake frequency: holidays/special occasions only Patient Tobacco Use Status: Never used Tobacco Patient : Yes Current occupation: [employer] Sexual orientation: Straight/Heterosexual Gender identity: Female Female Reproductive History Menstrual Age of Menarche: 9 Review of Systems Const All systems reviewed & are unremarkable except as noted in HPI and below Physical Exam Vital Signs: Last Vital Signs BP 110/60 02/22/23 10:21 BMI result Body Mass Index 35.4 Const General: cooperative, healthy appearing and no acute distress Orientation/consciousness: patient oriented x3 GI Inspection: Yes normal to inspection Palpation (GI): Soft to palpation and Other GI palpation findings present (Nontender) Rectal Exam - Female: visual inspection normal General: Yes bladder normal to palpation External Female Exam: normal appearance of the urethra Speculum Exam - Vagina: normal appearance of the vagina, normal palpation and other (White clumpy discharge) Speculum Exam - Cervix: normal appearance of the cervix and normal palpation Bimanual exam- vagina & uterus: normal bimanual exam, normal palpation, bladder normal to palpation, normal palpation, uterine shape normal (Slightly enlarged), non-tender and other Bimanual Exam- Adnexa, other: normal adnexae Neuro General: patient oriented x3 Results AMB Urinalysis Dipstick UR Leukocytes Negative Last Edit by Pooja Iqbal, ENGINEER TECHNICAL STAFF on 02/22/23 11:22 UR Nitrite Negative Last Edit by Pooja Iqbal, ENGINEER TECHNICAL STAFF on 02/22/23 11:22 UR Urobilinogen Normal Last Edit by Pooja Andrewsero, ENGINEER TECHNICAL STAFF on 02/22/23 11:22 UR Protein Negative Last Edit by Pooja Andrewsero, ENGINEER TECHNICAL STAFF on 02/22/23 11:22 UR Ph 6.5 Last Edit by Pooja Iqbal, ENGINEER TECHNICAL STAFF on 02/22/23 11:22 UR Blood Trace Last Edit by Pooja Iqbal, ENGINEER TECHNICAL STAFF on 02/22/23 11:22 UR Specific [place] 1.015 Last Edit by Pooja Iqbal, [facility] on 02/22/23 11:22 UR Ketone Negative Last Edit by Pooja Andrewsero, ENGINEER TECHNICAL STAFF on 02/22/23 11:22 UR Bilirubin Negative Last Edit by Pooja Andrewsero, ENGINEER TECHNICAL STAFF on 02/22/23 11:22 UR Glucose Negative Last Edit by Pooja Iqbal, [facility] on 02/22/23 11:22 Results Reviewed Results Reviewed: Laboratory Last Values Urine pH (Clinic) 6.5 02/22/23 11:21 Specific [place] (Clinic) 1.015 02/22/23 11:21 Ur Protein (Clinic) Negative 02/22/23 11:21 Ur Ketones (Clinic) Negative 02/22/23 11:21 Urine Blood (Clinic) Trace 02/22/23 11:21 Urine Nitrite Negative 02/22/23 11:21 Urine Bilirubin (Clinic) Negative 02/22/23 11:21 Urobilinogen (Clinic) Normal 02/22/23 11:21 Leukocyte Esterase (Clinic) Negative 02/22/23 11:21 Urine Glucose (Clinic) Negative 02/22/23 11:21 Assessment & Plan Assessment & Plan (1) Urinary frequency: Code(s): R35.0 - Frequency of micturition Plan: Urine dip was negative. Hydrate well. (2) Vaginal irritation: Code(s): N89.8 - Other specified noninflammatory disorders of vagina Plan GC chlamydia and BV panel obtained. Await results plan of care. Advised to follow-up with her OB provider in [place] and signed a release of records. Orders: Orders AMB Urinalysis Dipstick Today N94.9 - Unspecified condition associated with female genital organs and menstrual cycle CT NG by PCR Today Z20.2 - Contact with and (suspected) exposure to infections with a predominantly sexual mode of transmission Bacterial Vaginosis Panel Today Z20.2 - Contact with and (suspected) exposure to infections with a predominantly sexual mode of transmission Coding Level of Care Code Est Pt Level 3 (61165) Diagnoses Urinary frequency R35.0 Vaginal irritation N89.8
== END 2023-02-22 12:26 | disposition home or self-care (01) ==
LOC: HO.HWS 10:20
PROVIDERS: PCP Internal Medicine; Visit Provider Advanced Practice Midwife
DX: R35.0 Frequency of micturition (principal); N89.8 Other specified noninflammatory disorders of vagina; N94.9 Unspecified condition associated with female genital organs and menstrual cycle
CPT/HCPCS: 99213

== ENCOUNTER 2023-03-01 11:19 | Outpatient (AMB) | payer OTHER, SELFPAY ==
--- NOTE | 2023-03-01 11:32 | MHC.OFFVIS ---
Intake Vital Signs 03/01/23 11:41 Height 5 ft 10 in Weight 247 lb BMI 35.4 BP 126/65 Blood Pressure Location Lt brachial Position Sitting Pulse 97 Pulse Source Pulse Oximeter Pulse Oximetry (%) 99 Intake Visit Reasons: Ref.Hien Argueta,Trichomonas Consultation Allergies metronidazole [From Flagyl] Allergy (Intermediate, Verified 03/01/23 11:42) Hives amoxicillin [AMOXICILLIN] Allergy (Unknown, Verified 03/01/23 11:42) UNKNOWN HPI Ref.Hien Argueta,Trichomonas Consultation HPI Details She presents for ID referral since has trichomonas and reported hives to metronidazole. She has trichomonas. She has had trichomonas in the past about two years ago and took metronidazole and developed itchy rash. There were no hives or swelling or shortness of breath. She had a different partner in the past. She reports prior loss. Now her is 10 weeks. [facility] Medical History (Updated 03/03/23 @ 23:52 by Savana Blair MD) and infectious disease in first trimester Trichomonas vaginalis (TV) infection No pertinent past medical history Surgical History H/O dilation and curettage Family History Paternal Grandmother Breast cancer Dementia Alzheimer's disease Mother Diabetes Social History Household Members Other:: daughter Housing: Apartment Alcohol intake: current Alcohol intake frequency: holidays/special occasions only Patient Tobacco Use Status: Never used Tobacco Current occupation: Sales Operations Coordinator Sexual orientation: Straight/Heterosexual Gender identity: Female Female Reproductive History Menstrual Age of Menarche: 9 Review of Systems Const All systems reviewed & are unremarkable except as noted in HPI and below Details: slight vaginal itching and feeling as though something isnt quite right Physical Exam Vital Signs: Last Vital Signs Pulse 97 03/01/23 11:41 BP 126/65 03/01/23 11:41 Pulse Ox 99 03/01/23 11:41 BMI result Body Mass Index 35.4 Const General: cooperative Orientation/consciousness: patient oriented x3 HEENT Head: Yes normal to inspection Mouth: Normal oral and palatal mucosa present Eyes General: appearance normal, both eyes and all related structures Pupils: Equal, round and reactive pupils present Resp Effort & Inspection: normal respiratory effort Cardio Rate: regular rate Rhythm: regular rhythm GI Palpation (GI): Soft to palpation and nontender General: Yes no CVA tenderness Back/Spine/Pelvis Back: no CVA tenderness Skin General skin exam: no rashes or lesions noted Neuro General: patient oriented x3 Cranial nerves: Yes CN's II-XII intact bilaterally and Yes Equal, round and reactive pupils present Extrem General: Yes normal to inspection Psych Appearance: grossly normal Assessment & Plan Assessment & Plan (1) Trichomonas vaginalis (TV) infection: Comment: metronidazole best and most reliable treatment for trichomonas boric acid questionable value she has had metronidazole before with rash,no hypersensitivity dangerous reaction,just rash Code(s): A59.01 - Trichomonal vulvovaginitis Plan: metronidazole 500 mg po bid for seven days recommended rather than the one gram Do a test of cure after treat partner consider benadryl or other medication preferably topical if rash can see prn need It is imperative to treat trichomonas as you know due to risk of delivery and SGA and ?PROM (2) and infectious disease in first trimester: Comment: as above Code(s): O98.911 - Unspecified maternal infectious and parasitic disease complicating , first trimester Plan: as above Coding Level of Care Code New Pt Level 3 (43323) Diagnoses Trichomonas vaginalis (TV) infection A59.01 and infectious disease in first trimester O98.911
[2023-03-01 11:41] VITALS: BP 126/65; PULSE 97; O2SAT 99; BMI 35.4
== END 2023-03-01 12:11 | disposition home or self-care (01) ==
PROVIDERS: PCP Internal Medicine; Visit Provider Internal Medicine
DX: A59.01 Trichomonal vulvovaginitis (principal); O98.911 Unspecified maternal infectious and parasitic disease complicating pregnancy, first trimester
CPT/HCPCS: 99203

== ENCOUNTER → 2023-03-01 11:19 | Outpatient (BNVA) | payer OTHER, SELFPAY | PROVIDERS: PCP Internal Medicine; Visit Provider Internal Medicine | DX: O98.911 Unspecified maternal infectious and parasitic disease complicating pregnancy, first trimester (principal); A59.01 Trichomonal vulvovaginitis; Z3A.00 Weeks of gestation of pregnancy not specified | CPT/HCPCS: 99202 ==